=== PATIENT | male | born 1995 | race African-American/Black ===

== ENCOUNTER 2021-02-16 14:51 | Emergency (ER) | payer SELFPAY ==
--- NOTE | ~2021-02-16 | CT_ITS ---
EXAMINATION: CT brain wo con EXAM DATE: 02/16/2021 16:35 INDICATION: Dizziness. New/persistent right-sided headache for 2 weeks, Right posterior pain. TECHNIQUE: Spiral CT of the head was performed without contrast. Axial, coronal and sagittal images were reviewed. The dose-length product (DLP) for this examination was 605.33 mGy-cm. The exposure w as tailored according to patient size, and iterative reconstruction (ASIR) was used as additional dos e reduction technique. There is no prior study for comparison. FINDINGS: There is no acute intraparenchymal hemorrhage. No evidence of intraparenchymal brain mass lesion. No evidence of acute infarction. There is no mass effect or midline shift. The ventricles are normal in size. There are no extra-axial collections. There are no acute calvarial fractures. T he orbits are unremarkable. Soft tissue is unremarkable. The visualized sinuses and mastoid air federico ls are well aerated. IMPRESSION: 1. Normal head CT examination. Reviewed, dictated and finalized at location A. DYNAMICIST
--- NOTE | ~2021-02-16 | XR_ITS ---
EXAMINATION: XR chest 2V DATE: 02/16/2021 15:56 INDICATION: Lightheadedness TECHNIQUE: PA and lateral views of the chest were obtained. COMPARISON: None FINDINGS: The lungs are clear with no focal airspace opacities, pulmonary edema, pleural effusion or pneumothor ax. The cardiomediastinal silhouette is normal. Visualized bones and soft tissues are unremarkable. IMPRESSION: 1. Normal chest radiograph. Reviewed, dictated and finalized at location B. S CUTTING MACHINE FEEDER IMPRESSION: 1. Normal chest radiograph.
[2021-02-16 14:53] VITALS: BP 131/88; PULSE 75; RESP 18; TEMP 36.9; O2SAT 100
--- NOTE | 2021-02-16 15:44 | ECG_ITS ---
Measurements Intervals [place] Rate: 58 P: 59 MO: 189 QRS: 23 QRSD: 88 T: 22 QT: 410 QTc: 405 Interpretive Statements SINUS BRADYCARDIA WITH SINUS ARRHYTHMIA BORDERLINE ECG Electronically Signed On 02-16-2021 17:11:58 CAR RENTAL SERVICE ATTENDANT by Donnie Caballero D.O.
[2021-02-16 16:06] LABS: Basophils Absolute Auto 0.1 K/mm3 (0.0-0.1); Basophils Percent Auto 0.5 % (0.2-1.2); Eosinophils Absolute Auto 0.1 K/mm3 (0-0.3); Eosinophils Percent Auto 1.3 % (0-4.4); Hematocrit 46.8 % (42.0-52.0); Hemoglobin 15.8 g/dL (14.0-18.0); Immature Granulocyte Absolute 0.03 K/mm3 (0.00-0.031); Immature Granulocyte Percent A 0.3 % (0-0.5); Lymphocytes Absolute Auto 2.97 K/mm3 (0.9-3.2); Lymphocytes Percent Auto 27.4 % (18.3-44.2); Mean Corpuscular HGB Conc 33.8 g/dl (32-36); Mean Corpuscular Hemoglobin 27.9 pg (26-34); Mean Corpuscular Volume 82.5 fl (80-100); Mean Platelet Volume 9.6 fl (7.4-10.4); Monocytes Absolute Auto 0.8 K/mm3 (0.1-0.6); Monocytes Percent Auto 6.9 % (2.6-8.5); Neutrophils Absolute Auto 6.9 K/mm3 (1.3-6.7); Neutrophils Percent Auto 63.6 % (45.5-73.1); Platelet Count Result 321 k/mm3 (150-375); Red Blood Count 5.67 M/mm3 (4.6-6.20); Red Cell Distribution Width 12.2 % (11.5-14.5); White Blood Count 10.9 K/mm3 (4.5-10.0)
--- NOTE | 2021-02-16 16:13 | ED.HA ---
HPI - Headache General Chief Complaint: Headache Stated Complaint: super lightheaded, migraine Time Seen by Provider: 02/16/21 15:44 Source: patient Mode of arrival: ambulatory Limitations: no limitations History of Present Illness HPI Narrative: This is a 25 year old male that presents to the ER for headaches present over the last couple weeks. Reports a pounding posterior headache. Reports some relief with Advil. No previous history of headaches. Also reports he has had intermittent lightheadedness. Denies fever, vision changes, chest pain, shortness of breath, vomiting, numbness or weakness. Related Data Allergies Allergy/AdvReac Type Severity Reaction Status Date / Time No Known Allergies Allergy Verified 02/16/21 16:52 Review of Systems Review of Systems: CONSTITUTIONAL: Denies fever EYES: Denies visual changes CARDIOVASCULAR: Denies chest pain RESPIRATORY: Denies dyspnea. GASTROINTESTINAL: Denies vomiting NEUROLOGIC: Reports headache. Denies numbness, or weakness. All systems reviewed & are unremarkable except as noted in HPI and below PMFSH Past Medical History Medical History (Updated 02/16/21 @ 20:07 by Irasema Aguirre PA-C) No active medical problems Social History Social History (Updated 02/16/21 @ 16:18 by Irasema Aguirre PA-C) Smoking status: Never smoker Exam Narrative: GENERAL: Well-appearing, well-nourished, and in no acute distress. HEAD: Normocephalic, atraumatic. EYES: PERRLA and EOMI. ENT: Nares clear, no rhinorrhea or epistaxis. Mucous membranes moist. Oropharynx without tonsillar hypertrophy exudate or other lesions. Bilateral TMs pearly malave non-bulging NECK: Supple. No adenopathy or masses. CHEST: Clear to auscultation. No respiratory distress. No wheezes rales or rhonchi HEART: Regular rate and rhythm. No murmur heard. Normal peripheral pulses. ABDOMEN: Soft, nontender, nondistended, normal active bowel sounds. EXTREMITIES: Normal range of motion. No edema. Strength equal in bilateral upper and lower extremities (5/5) SKIN: Warm, dry, no rash. NEURO: No focal deficits. Alert and oriented x3. Cranial nerves II through XII grossly intact. Normal [id number] PSYCH: Normal mood and affect Course Consultations Consultation #1: Spoke with Dr. Bruce about patient and work-up who will follow up in clinic. Date: 02/16/21 Time: 20:05 Vital Signs Vital signs: Vital Signs Temperature 98.5 F 02/16/21 14:53 Pulse Rate 75 02/16/21 14:53 Respiratory Rate 18 02/16/21 14:53 Blood Pressure 131/88 02/16/21 14:53 Pulse Oximetry 100 02/16/21 14:53 Temperature 98.5 F 02/16/21 14:53 Pulse Rate 80 02/16/21 16:48 Respiratory Rate 18 02/16/21 14:53 Blood Pressure 149/88 H 02/16/21 16:48 Pulse Oximetry 100 02/16/21 14:53 MDM - Headache MDM Narrative Medical decision making narrative: Patient presents emergency department for lightheadedness and headaches. He is afebrile and nontoxic-appearing. He is neurologically intact. CBC with mild leukocytosis to 10.9. Metabolic panel with blood sugar of 344. No anion gap, bicarb is normal. UA with 3+ glucose. CT scan of the brain without acute findings. Chest x-ray without acute abnormalities. EKG without concerning changes. Patient hydrated and given migraine cocktail with relief. He was updated on case findings. Spoke with Dr. Bruce about patient and work-up. Would like patient started on Metformin and will follow up in clinic. Patient is stable and felt appropriate for further outpatient evaluation. He was given warnings to return to the ER Lab Data Attestation: I reviewed the patient's lab results. Result diagrams: 02/16/21 16:00 02/16/21 16:00 Labs: Lab Results 02/16/21 02/16/21 02/16/21 Range/Units 16:00 16:00 16:00 WBC 10.9 H (4.5-10.0) K/mm3 RBC 5.67 (4.6-6.20) M/mm3 Hgb 15.8 (14.0-18.0) g/dL Hct 46.8 (42.0-52.0) % MCV 82.5 (80-100) fl
[2021-02-16 16:15] LABS: Anion Gap 9 mmol/L (8-16); Blood Urea Nitrogen 14 mg/dL (9-20); Calcium 9.6 mg/dL (8.4-10.2); Carbon Dioxide 27 mmol/L (22-30); Chloride 101 mmol/L (98-107); Estimated CRCL calculation 111 ml/min; Estimated Glomerular Filt Rate > 60; Glucose 344 mg/dL (65-110); Potassium 4.2 mmol/L (3.4-5.0); Sodium 137 mmol/L (137-145)
--- NOTE | 2021-02-16 16:25 | PC.NURSE ---
PT TO CT SCAN VIA WHEELCHAIR
[2021-02-16 16:46] VITALS: BP 132/86; PULSE 70
[2021-02-16 16:48] VITALS: BP 134/87; BP 149/88; PULSE 74; PULSE 80
[2021-02-16] MEDS: METOCLOPRAMIDE HCL INJ 10 MG/2 ML VIAL IV PUSH (16:51)
[2021-02-16] MEDS: SODIUM CHLORIDE 0.9% IV 1,000 ML 999 ML IV CONT (16:51)
[2021-02-16] MEDS: diphenhydrAMINE HCl INJ 50 MG/ML VIAL 25 MG IV PUSH (16:51)
[2021-02-16 18:21] LABS: Add Urine Microscopic? YES; Appearance Urine Clear (Clear); Bilirubin Urine Negative (Negative); Blood Urine Negative (Negative); Color Urine Straw (Yellow); Glucose Urine UA 3+ mg/dL (Negative); Ketones Urine Trace mg/dL (Negative); Leukocyte Esterase Ur Negative LEU/UL (Negative); Nitrate Urine Negative (Negative); Protein Urine Negative (Negative); RBC Urine 0-2 /hpf (0-2); WBC Urine 0-3 /hpf
[2021-02-16 18:29] LABS: Specific Grav Ur 1.037 (1.001-1.035)
[2021-02-16 19:34] LABS: Hemoglobin A1C 9.2 % (<5.7)
[2021-02-16 20:22] VITALS: BP 137/72; PULSE 62; RESP 18; O2SAT 99
== END 2021-02-16 20:25 | disposition home or self-care (01) ==
PROVIDERS: Physician Assistant; Emergency Provider Emergency Medicine
DX: E11.9 Type 2 diabetes mellitus without complications (principal); R00.1 Bradycardia, unspecified
CPT/HCPCS: 36415; 70450; 71046; 80048; 81001; 83036; 85025; 93005; 96361; 96365; 96375; 99284; J0131; J1200; J2765; J7030

== ENCOUNTER 2023-05-26 14:15 | Emergency (ER) | payer SELFPAY ==
[2023-05-26] VITALS (10 sets, daily range): BP systolic 113–124; BP diastolic 76–81; PULSE 69–97; RESP 12–20; TEMP 36.8; O2SAT 97–100
[2023-05-26 14:41] LABS: Glucose Point of Care 497 mg/dl (65-105)
[2023-05-26 15:02] LABS: Basophils Absolute Auto 0.1 K/mm3 (0.0-0.1); Basophils Percent Auto 0.7 % (0.2-1.2); Eosinophils Percent Auto 0.6 % (0-4.4); Hematocrit 47.6 % (42.0-52.0); Hemoglobin 15.8 g/dL (14.0-18.0); Immature Granulocyte Absolute 0.02 K/mm3 (0.00-0.031); Immature Granulocyte Percent A 0.3 % (0-0.5); Lymphocytes Absolute Auto 1.68 K/mm3 (0.9-3.2); Lymphocytes Percent Auto 23.7 % (18.3-44.2); Mean Corpuscular HGB Conc 33.2 g/dl (32-36); Mean Corpuscular Hemoglobin 27.3 pg (26-34); Mean Corpuscular Volume 82.4 fl (80-100); Mean Platelet Volume 9.8 fl (7.4-10.4); Monocytes Absolute Auto 0.4 K/mm3 (0.1-0.6); Monocytes Percent Auto 5.4 % (2.6-8.5); Neutrophils Absolute Auto 4.9 K/mm3 (1.3-6.7); Neutrophils Percent Auto 69.3 % (45.5-73.1); Platelet Count Result 265 k/mm3 (150-375); Red Blood Count 5.78 M/mm3 (4.6-6.20); White Blood Count 7.1 K/mm3 (4.5-10.0)
[2023-05-26 15:07] LABS: Appearance Urine Clear (Clear); Bilirubin Urine Negative (Negative); Blood Urine Negative (Negative); Color Urine Yellow (Yellow); Glucose Urine UA 3+ mg/dL (Negative); Ketones Urine Trace mg/dL (Negative); Leukocyte Esterase Ur Negative LEU/UL (Negative); Nitrate Urine Negative (Negative); Protein Urine Negative (Negative); Urobilinogen Urine 0.2 mg/dL (<2.0)
[2023-05-26 15:10] LABS: Add Urine Microscopic? NO; Specific Grav Ur 1.036 (1.001-1.035)
[2023-05-26 15:15] LABS: Alanine Aminotransferase 18 U/L (6-50); Albumin Level 4.4 g/dL (3.5-5.1); Alkaline Phosphatase 93 U/L (38-126); Anion Gap 9 mmol/L (4-12); Aspartate Amino Transferase 18 U/L (17-59); Bilirubin,Total 0.6 mg/dL (0.2-1.3); Blood Urea Nitrogen 11 mg/dL (9-20); Calcium 9.3 mg/dL (8.4-10.2); Carbon Dioxide 25 mmol/L (22-30); Chloride 98 mmol/L (98-107); Estimated CRCL calculation 139 ml/min; Estimated Glomerular Filt Rate > 60; Glucose 485 mg/dL (65-110); Magnesium 1.7 mg/dL (1.6-2.3); Phosphorus 3.2 mg/dL (2.5-4.5); Potassium 4.2 mmol/L (3.4-5.0); Sodium 132 mmol/L (137-145)
[2023-05-26] MEDS: SODIUM CHLORIDE 0.9% IV 1,000 ML 999 ML IV CONT (16:15)
[2023-05-26 17:07] LABS: Glucose Point of Care 385 mg/dl (65-105)
--- NOTE | 2023-05-26 17:20 | ED.GENADULT ---
HPI - General Adult General Chief complaint: Recheck/Abnormal Lab/Rx Stated complaint: diabetes issues Time Seen by Provider: 05/26/23 16:11 History of Present Illness HPI narrative: Patient is a 28-year-old male who presents ER for evaluation blurred vision. Reports he will intermittently get a headache with blurred vision. Is currently resolved. No fevers or chills or sweats. He thinks it is related to uncontrolled diabetes. He has not taken metformin since he was initially diagnosed with diabetes several years ago. He has not seen a primary care physician. No fevers or chills or sweats. No chest pain or chest pressure. No blindness at this time. No numbness or tingling to the hands or feet. Related Data Allergies Allergy/AdvReac Type Severity Reaction Status Date / Time No Known Allergies Allergy Verified 02/16/21 16:52 Review of Systems Review of Systems: All systems reviewed & are unremarkable except as noted in HPI and below Constitutional: Constitutional: Reports no additional constitutional complaints Eyes: Eyes: Reports no additional eye complaints ENT: Reports system reviewed and no additional complaints, except as documented Cardiovascular: Cardiovascular: Reports no additional cardiovascular complaints Respiratory: Respiratory: Reports no additional respiratory complaints Gastrointestinal: Gastrointestinal: Reports no additional gastrointestinal complaints [facility] Past Medical History Medical History (Updated 05/26/23 @ 17:47 by Mitchell Spivey MD) Type 2 diabetes mellitus Social History Social History (Updated 02/16/21 @ 16:18 by Irasema Aguirre PA-C) Smoking status: Never smoker Exam Narrative: GENERAL: Well-appearing, well-nourished, and in no acute distress. HEAD: Normocephalic, atraumatic. ENT: Mucous membranes moist. CHEST: Clear to auscultation. No respiratory distress. HEART: Regular rate and rhythm. Normal peripheral pulses. ABDOMEN: Soft, nontender, nondistended. EXTREMITIES: Normal range of motion. No edema. SKIN: Warm, dry, no rash. Scarring to the forearms from cutting. NEURO: Alert and oriented x3. PSYCH: Normal mood and affect. Course Course Emergency Course: patient resting comfortably. Patient given IV fluids for hyperglycemia. Patient is chronically uncontrolled diabetic. No DKA. Discussed long-term consequences of untreated diabetes including blindness, nonhealing wounds resulting in amputation, kidney failure, and heart disease. Will start on metformin. Discussed that he should titrate up on the dosage slowly. We will provide him a name of a PCP that he can try to follow up with. Vital Signs Vital signs: Vital Signs Temperature 98.2 F 05/26/23 14:35 Pulse Rate 97 05/26/23 14:35 Respiratory Rate 12 05/26/23 14:35 Blood Pressure 124/81 05/26/23 14:35 Pulse Oximetry 100 05/26/23 14:35 Temperature 98.2 F 05/26/23 14:35 Pulse Rate 97 05/26/23 14:35 Respiratory Rate 12 05/26/23 14:35 Blood Pressure 124/81 05/26/23 14:35 Pulse Oximetry 100 05/26/23 14:35 Medical Decision Making Vital Signs Vital Signs: Vital Signs Temperature 98.2 F 05/26/23 14:35 Pulse Rate 97 05/26/23 14:35 Respiratory Rate 12 05/26/23 14:35 Blood Pressure 124/81 05/26/23 14:35 Pulse Oximetry 100 05/26/23 14:35 Temperature 98.2 F 05/26/23 14:35 Pulse Rate 97 05/26/23 14:35 Respiratory Rate 12 05/26/23 14:35 Blood Pressure 124/81 05/26/23 14:35 Pulse Oximetry 100 05/26/23 14:35 Lab Data 05/26/23 14:46 05/26/23 14:46 Labs: Lab Results 05/26/23 05/26/23 05/26/23 Range/Units 14:36 14:46 15:00 WBC 7.1 (4.5-10.0) K/mm3 RBC 5.78 (4.6-6.20) M/mm3 Hgb 15.8 (14.0-18.0) g/dL Hct 47.6 (42.0-52.0) % MCV 82.4 (80-100) fl MCH 27.3 (26-34) pg MCHC 33.2 (32-36) g/dl RDW 12.0 (11.5-14.5) % Plt Count 265 (150-37
[2023-05-26 18:22] LABS: Beta-Hydroxybutyrate/Acetoacetate 0.29 mmol/L (0.02-0.27)
== END 2023-05-26 18:06 | disposition home or self-care (01) ==
PROVIDERS: Emergency Provider Emergency Medicine
DX: E11.65 Type 2 diabetes mellitus with hyperglycemia (principal); T38.3X6A Underdosing of insulin and oral hypoglycemic [antidiabetic] drugs, initial encounter; Z91.128 Patient's intentional underdosing of medication regimen for other reason
CPT/HCPCS: 36415; 80053; 81003; 82010; 82948; 83735; 84100; 85025; 96360; 99283; J7030

== ENCOUNTER 2023-09-22 09:20 | Outpatient (CLI) | payer SELFPAY ==
[2023-09-22 12:58] LABS: Basophils Absolute Auto 0.1 K/mm3 (0.0-0.1); Basophils Percent Auto 0.8 % (0.2-1.2); Eosinophils Absolute Auto 0.1 K/mm3 (0-0.3); Eosinophils Percent Auto 0.9 % (0-4.4); Hematocrit 48.5 % (42.0-52.0); Hemoglobin 16.5 g/dL (14.0-18.0); Immature Granulocyte Absolute 0.02 K/mm3 (0.00-0.031); Immature Granulocyte Percent A 0.3 % (0-0.5); Lymphocytes Absolute Auto 2.08 K/mm3 (0.9-3.2); Lymphocytes Percent Auto 27.5 % (18.3-44.2); Mean Corpuscular Hemoglobin 28.3 pg (26-34); Mean Platelet Volume 10.4 fl (7.4-10.4); Monocytes Absolute Auto 0.5 K/mm3 (0.1-0.6); Monocytes Percent Auto 6.7 % (2.6-8.5); Neutrophils Absolute Auto 4.8 K/mm3 (1.3-6.7); Neutrophils Percent Auto 63.8 % (45.5-73.1); Platelet Count Result 304 k/mm3 (150-375); Red Blood Count 5.84 M/mm3 (4.6-6.20); Red Cell Distribution Width 12.4 % (11.5-14.5); White Blood Count 7.6 K/mm3 (4.5-10.0)
[2023-09-22 13:17] LABS: Alanine Aminotransferase 18 U/L (6-50); Albumin Level 4.3 g/dL (3.5-5.1); Alkaline Phosphatase 80 U/L (38-126); Anion Gap 11 mmol/L (4-12); Aspartate Amino Transferase 34 U/L (17-59); Bilirubin,Total 0.8 mg/dL (0.2-1.3); Blood Urea Nitrogen 17 mg/dL (9-20); Carbon Dioxide 29 mmol/L (22-30); Chloride 97 mmol/L (98-107); Cholesterol 194 mg/dL (0-200); Estimated Glomerular Filt Rate > 60; Glucose 251 mg/dL (65-110); HDL Direct 51 mg/dL; Sodium 137 mmol/L (137-145); Triglycerides 62 mg/dL (<150)
[2023-09-22 13:28] LABS: Creatinine Urine 116.4 mg/dL
[2023-09-22 13:30] LABS: LDL Cholesterol Direct 116 mg/dL
[2023-09-22 13:32] LABS: MALB Creatinine Ratio 6.1 mg/g (0-30); Microalbumin Urine Random 7.1 mg/L (0-16.7)
[2023-09-22 14:23] LABS: Thyroid Stimulating Hormone Reflex 0.727 uIU/mL (0.465-4.68)
[2023-09-26 08:57] LABS: Reference Lab Test Name HGB A1C
[2023-09-26 09:20] LABS: Reference Lab Test Result >14%
== END 2023-09-22 09:21 | disposition home or self-care (01) ==
PROVIDERS: PCP Family Medicine; Visit Provider Nurse Practitioner Family
DX: Z00.00 Encounter for general adult medical examination without abnormal findings (principal); E11.9 Type 2 diabetes mellitus without complications
CPT/HCPCS: 36415; 80053; 80061; 82043; 83036; 84443; 85025

== ENCOUNTER 2024-06-28 10:38 | Emergency (ER) | payer OTHER, SELFPAY ==
--- OUTSIDE RECORDS SUMMARY | 2024-06-28 10:44 | XMS_ITS | Referral Summary ---
Author Organization [facility] Address [address] [place] [id number] Care Team Providers Care Poultry Farm Supervisor Name Role Phone Unknown, Notinfile Primary Care Provider Unavail able Allergies No known active allergies Medications ondansetron ODT (ZOFRAN-ODT) 4 mg disintegrating tablet Take 1 tablet (4 mg total) by mouth every 8 (eight) hours as needed for nausea 20 tablet Active Active Problems Problem Noted Date Diagnosed Date Nausea 06/08/2023 Assessment & Plan (06/08/2023 10:20 AM CDT): Will send zofran to patient pharmacy. If symptoms worsen or do not improve recommend reevaluation in the ED due to severity of symptoms. Patient verbalized understanding and agreed to plan of care at this time. Social History Tobacco Use Types Packs/Day Years Used Date Smoking Tobacco: Never Assessed Personal Safety Answer Date Recorded Getting School Help Needed Not on file 03/03 Sex and Gender Information Value Date Recorded Sex Assigned at Not on file Legal Sex Male 9:38 AM MEDICAL SCIENTIFIC OFFICER Gender Identity Not on file Sexual Orientation Not on file Last Filed Vital Signs Vital Sign Reading Time Taken Comments Blood Pressure 130/88 01/23/2023 4:11 PM MEDICAL SCIENTIFIC OFFICER Pulse 77 01/23/2023 4:11 PM MEDICAL SCIENTIFIC OFFICER Temperature 36.8 C (98.3 F) 01/23/2023 4:11 PM MEDICAL SCIENTIFIC OFFICER Respiratory Rate 16 01/23/2023 4:11 PM MEDICAL SCIENTIFIC OFFICER Oxygen Saturation 98% 01/23/2023 4:11 PM MEDICAL SCIENTIFIC OFFICER Inhaled Oxygen Concentration - - Weight 72.6 kg (160 lb) 01/23/2023 4:11 PM MEDICAL SCIENTIFIC OFFICER Height - - Body Mass Index - - Plan of Treatment Not on file Insurance [facility] Care Teams Poultry Farm Supervisor Relationship Specialty Start Date End Date Unknown, Notinfile PCP - General 01/13/23
--- OUTSIDE RECORDS SUMMARY | 2024-06-28 10:44 | XMS_ITS | Clinical Summary ---
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 Gender Identity Not on file Sexual Orientation Not on file Last Filed Vital Signs Vital Sign Reading Time Taken Comments Blood Pressure 130/88 01/23/2023 4:11 PM RAILROAD YARD WORKER Pulse 77 01/23/2023 4:11 PM RAILROAD YARD WORKER Temperature 36.8 C (98.3 F) 01/23/2023 4:11 PM RAILROAD YARD WORKER Respiratory Rate 16 01/23/2023 4:11 PM RAILROAD YARD WORKER Oxygen Saturation 98% 01/23/2023 4:11 PM RAILROAD YARD WORKER Inhaled Oxygen Concentration - - Weight 72.6 kg (160 lb) 01/23/2023 4:11 PM RAILROAD YARD WORKER Height - - Body Mass Index - - Plan of Treatment Health Maintenance Due Date Last Done Comments Depression Screening 1995 Hepatitis C Screening 1995 DTaP/Tdap/Td Vaccine (1 - Tdap) 2006 Varicella Vaccines (1 of 2 - 13+ 2-dose series) 2008 Hepatitis B Screening 2013 Regular Well Visit/Exam 18-64 2013 Covid-19 Vaccine (2 - 2023-2 5 season) 2023 05/23/2020 Influenza Vaccine (Season Ended) 2024 HPV Vaccines Aged Out No longer eligi ble based on patient's age to complete this topic Pneumococcal vaccine <65 Aged Out No longer eligible based on patient's age to complete this topic Insurance Care Teams Carbonating Stone Cleaner Relationship Specialty Start Date End Date Unknown, Notinfile PCP - General 01/13/23
[2024-06-28 10:46] VITALS: BP 129/87; PULSE 95; RESP 16; TEMP 36.4; O2SAT 98
--- OUTSIDE RECORDS SUMMARY | 2024-06-28 11:14 | XMS_ITS | Clinical Summary ---
Author Organization [facility] Address [address] [place] [phone] Care Team Providers Care Metal Fitters And Machinists Name Role Phone Unknown, Notinfile Primary Care [...] on file Legal Sex Male 9:38 AM PHARMACY TECHNICIAN TRAINEE Gender Identity Not on file Sexual Orientation Not on file Last Filed Vital Signs Vital Sign Reading Time Taken Comments Blood Pressure 130/88 01/23/2023 4:11 PM PHARMACY TECHNICIAN TRAINEE Pulse 77 01/23/2023 4:11 PM PHARMACY TECHNICIAN TRAINEE Temperature 36.8 C (98.3 F) 01/23/2023 4:11 PM PHARMACY TECHNICIAN TRAINEE Respiratory Rate 16 01/23/2023 4:11 PM PHARMACY TECHNICIAN TRAINEE Oxygen Saturation 98% 01/23/2023 4:11 PM PHARMACY TECHNICIAN TRAINEE Inhaled Oxygen Concentration - - Weight 72.6 kg (160 lb) 01/23/2023 4:11 PM PHARMACY TECHNICIAN TRAINEE Height - - Body Mass Index - [...] to complete this topic Insurance Care Teams Metal Fitters And Machinists Relationship Specialty Start Date End Date Unknown, Notinfile PCP - General 01/13/23
--- OUTSIDE RECORDS SUMMARY | 2024-06-28 11:14 | XMS_ITS | Referral Summary ---
Author Organization [facility] Address [address] [place] [phone] Care Team Providers Care Sales Order Processor Name Role Phone Unknown, Notinfile Primary Care [...] on file Legal Sex Male 9:38 AM AUTO HIKER Gender Identity Not on file Sexual Orientation Not on file Last Filed Vital Signs Vital Sign Reading Time Taken Comments Blood Pressure 130/88 01/23/2023 4:11 PM AUTO HIKER Pulse 77 01/23/2023 4:11 PM AUTO HIKER Temperature 36.8 C (98.3 F) 01/23/2023 4:11 PM AUTO HIKER Respiratory Rate 16 01/23/2023 4:11 PM AUTO HIKER Oxygen Saturation 98% 01/23/2023 4:11 PM AUTO HIKER Inhaled Oxygen Concentration - - Weight 72.6 kg (160 lb) 01/23/2023 4:11 PM AUTO HIKER Height - - Body Mass Index - - Plan of Treatment Not on file Insurance [facility] Care Teams Sales Order Processor Relationship Specialty Start Date End Date Unknown, Notinfile PCP - General 01/13/23
[2024-06-28] MEDS: dexAMETHasone 10 MG/10 ML INTENSOL CONC (*BKC) PO (11:19)
[2024-06-28] MEDS: KETOROLAC 30 MG/ML VIAL (*BKC) IM (11:20)
[2024-06-28 11:40] LABS: Strep Group A RT-PCR DETECTED (Negative)
[2024-06-28] MEDS: AMOXICILLIN 500 MG CAPSULE PO (11:55)
[2024-06-28 11:58] LABS: Influenza A QL RT-PCR Negative (Negative); Influenza B QL RT-PCR Negative (Negative); RSV RNA, RT-PCR Negative (Negative); SARS-CoV-2 RNA PCR Negative (Negative)
--- NOTE | 2024-06-28 13:10 | ED.URI ---
HPI - URI/Sore Throat General Chief Complaint: Upper Respiratory Infection Stated Complaint: sore throat, headache Time Seen by Provider: 06/28/24 10:52 History of Present Illness HPI Narrative: Patient presenting here with sore throat, myalgias, started yesterday, tried taking DayQuil without much improvement Related Data Allergies Allergy/AdvReac Type Severity Reaction Status Date / Time No Known Allergies Allergy Verified 06/28/24 10:39 Review of Systems Review of Systems: All systems reviewed & are unremarkable except as noted in HPI and below PMFSH Past Medical History Medical History Diabetes mellitus Neuropathic pain Type 2 diabetes mellitus Social History Social History Social History: Caffeine-coffee Smoking status: Current some day smoker Tobacco type: e-cigarettes/vaping Alcohol intake: current Alcohol use details: whiskey occasionally Substance use: current Substance use type: marijuana Do You Feel Safe in your Home?: Yes Lack of Transportation: YES Lack of Food: Never True Current Housing: I Have Housing Concerned About Future Housing: No Difficulty Paying Gas/Electric Bills: No Difficulty Paying for Meds: No Currently Unemployed: No Education: High School Diploma/GED Difficulty w/ Childcare or Family Care: No Living arrangements: with family Occupation/Education: occupation 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 EYES: EOMI, conjunctiva normal ENT: Clear voice, no trismus, bilateral tonsillar exudates and some pharyngeal erythema and swelling LUNGS: Nonlabored breathing. HEART: [Regular rate and rhythm] ABD: [Soft], [nontender to palpation] EXT: Normal range of motion SKIN: [No rashes or lesions.] NEURO: [Alert and oriented x 3. No gross focal sensory or strength deficits.] PSYCH: Normal affect Course Vital Signs Vital signs: Vital Signs Temperature 97.6 F 06/28/24 10:46 Pulse Rate 95 06/28/24 10:46 Respiratory Rate 16 06/28/24 10:46 Blood Pressure 129/87 06/28/24 10:46 Pulse Oximetry 98 06/28/24 10:46 Temperature 97.6 F 06/28/24 10:46 Pulse Rate 95 06/28/24 10:46 Respiratory Rate 16 06/28/24 10:46 Blood Pressure 129/87 06/28/24 10:46 Pulse Oximetry 98 06/28/24 10:46 MDM - URI/Sore Throat MDM Narrative Medical decision making narrative: Patient presents with history and exam consistent with tonsillitis, no airway compromise, swabs positive for strep, discussed this with patient, will start him on antibiotics, given Toradol and dexamethasone for symptoms, follow-up to PCP with return precautions. Patient agreeable to plan Lab Data Labs: Lab Results 06/28/24 Range/Units 11:10 Influenza A (RT-PCR) Negative (Negative) Influenza B (RT-PCR) Negative (Negative) RSV (RT-PCR) Negative (Negative) SARS-CoV-2 RNA (RT-PCR) Negative (Negative) Group A Strep (PCR) Detected A (Negative) Discharge Plan Discharge Clinical Impression: Acute streptococcal pharyngitis Patient Disposition: Home Condition: Stable Instructions: Strep Throat (DC) Additional Instructions: Please follow up with your doctor; take the antibiotics as prescribed, you can always return for any further issues. Patient Language: Japanese Prescriptions: New amoxicillin 500 mg capsule 500 mg PO Q8H 10 Days Qty: 30 0RF No Action Novolin 70/30 U-100 Insulin 100 unit/mL (70-30) suspension 27 unit subcut BID Qty: 30 2RF (DME) insulin syringe-needle U-100 [TRUEplus Insulin] 1 mL 31 gauge x 5/16 syringe See Rx Instructions .ROUTE .COMPLEX Qty: 100 3RF Dose Instruction: USE SYRINGE TO INJECT INSULIN TWICE DAILY DIRECTED Rx Instructions: USE SYRINGE TO INJECT INSULIN TWICE DAILY DIRECTED glimepiride 2 mg tablet 2 mg PO QAM Qty: 90 1RF Rx Instructions: administer with breakfast omeprazole 20 mg capsule,delayed release(DR/EC) 20 mg PO BID Qty: 60 0RF (DME) insulin syringe-needle U-100 [CareTouch Insulin Syringe] 1 mL 30 gauge x 5/16 syringe See Rx Instructions .Route Qty: 200 1RF Rx Instructions: Us to inject insulin twice daily Follow-up/Referrals: Gerald Lizama MD [Primary Care Provider] - 2 Days Stand Alone Forms: Work/School Release IP
== END 2024-06-28 12:00 | disposition home or self-care (01) ==
PROVIDERS: Emergency Provider Emergency Medicine; PCP Family Medicine
DX: J02.0 Streptococcal pharyngitis (principal); E11.9 Type 2 diabetes mellitus without complications; F17.290 Nicotine dependence, other tobacco product, uncomplicated; Z20.822 Contact with and (suspected) exposure to COVID-19
CPT/HCPCS: 87637; 87651; 96372; 99283; A9270; J1885; J8540